=== PATIENT | male | born 1955 ===

== ENCOUNTER 2024-12-07 08:00 | Day surgery (SDC) | payer OTHER ==
[2024-11-30 07:49] VITALS: BP 143/83
[~2024-12-07] VITALS: Ht 157.5 cm; Wt 68.0 kg
[~2024-12-07 08:00] MED LIST: CARVEDILOL; INSULINA; LOSARTAN
[2024-12-07] MEDS ORDERED: CEFAZOLIN SODIUM 1,000 MG VIAL ONE (08:37)
== END 2024-12-07 13:15 | disposition home or self-care (01) ==
LOC: CIR.AMB 08:00
PROVIDERS: ATTEND Surgery Surgery of the Hand
DX: M67.842 Other specified disorders of synovium, left hand (principal)